=== PATIENT | male | born 1945 | race Caucasian/White ===

== ENCOUNTER → 2018-08-14 | Outpatient (CLI) | payer MEDICARE ==
[~2018-08-14] MED LIST: BENICAR HCT 201 EACH PO; BENICAR HCT 401 EAC1 PO; BENICAR20 MG PO; BENTYL10 MG PO; LEVOTHYROXINE50 MCG PO; LIPITOR20 MG PO; MAG-G500 MG; NEXIUM40 MG PO; NORVASC5 MG PO; PAROXETINE HCL20 MG PO; PLAVIX75 MG PO; SINCALIDE 3 MCG/VIAL INJ ONE; Z ARMOUR THYROID PO; Z.0.LASIX40 MG PO; Z.0.LEVAQUIN500 MG PO; ZOCOR20 MG PO; [UNRECOGNIZED DRUG - OTHER] PO
--- NOTE | 2018-08-14 14:32 | Diagnostic Imaging Report ---
Abdominal ultrasound dated 08/14/2018 at 8:12 AM. History: Right upper quadrant pain Comparison: <None available>. Discussion: Transverse and longitudinal images of the abdomen were obtained demonstrating a liver measuring 13.8 cm in length. There is increased echogenicity of the liver. The portal vein is patent with hepatopetal flow and is within normal limits measuring 12 mm in diameter. The biliary tree is within normal limits with the common bile duct measuring 3 mm in diameter. The gallbladder is normal without evidence of stones, wall thickening, or pericholecystic fluid. The sonographic Kramer's sign was negative. The kidneys are normal in size and echogenicity bilaterally without evidence of hydronephrosis, stones, or mass. The right kidney measures 9.8 x 5.2 x 4.8 cm and the left kidney measures 9.1 x 5.3 x 5.3 cm. There are 2 cysts in the left kidney. Upper pole cyst measures 2.1 x 2.0 x 1.9 cm. Left lower pole cyst measures 2.7 x 2.1 x 2.6 cm. The spleen is normal in size and appearance measuring 9.7 x 5.7 x 5.4 cm. The pancreatic <head and body> are visualized and are normal in appearance. The abdominal aorta is within normal limits with a maximal measurement of 2.1 cm. The IVC is patent. There is no evidence of free fluid. IMPRESSION: 1. Bilateral renal cysts. 2. Increased echogenicity of the liver. Signed by: Dr. Masoud Dhaliwal DO on 08/14/2018 1:45 PM
--- NOTE | 2018-08-14 19:42 | Diagnostic Imaging Report ---
Hepatobiliary Scan with Gallbladder Ejection Fraction Clinical information: Abdominal pain; GERD Report: Following intravenous administration of 7 millicuries of Tc-99m mebrofenin, dynamic images of the abdomen in the anterior projection were obtained through 30 minutes. Sincalide (CCK analog) 1.7 micrograms was administered intravenously over 30 minutes with additional imaging for determination of gallbladder ejection fraction. Perfusion to the liver is normal. Extraction of tracer from the blood pool by the liver parenchyma is normal. Tracer is seen promptly within the biliary tract. The gallbladder begins to fill by 6 minutes post-injection of tracer. Tracer is seen in the small bowel by 5 minutes. The gallbladder ejection fraction with administration of sincalide is 92% (normal greater than 40%). Impression: 1. Filling of the gallbladder excludes the diagnosis of acute cystic duct obstruction/acute cholecystitis. 2. Normal gallbladder ejection fraction of 92% does not support the clinical diagnosis of chronic cholecystitis/gallbladder dyskinesia. Signed by: Dr. Vianca Robison M.D. on 08/14/2018 7:38 PM
== END ==
LOC: US 07:33
PROVIDERS: ATTEND Internal Medicine Gastroenterology
DX: K21.0 Gastro-esophageal reflux disease with esophagitis (principal); R10.11 Right upper quadrant pain; R11.0 Nausea
CPT/HCPCS: 76700; 78227; A9537; J2805

== ENCOUNTER → 2019-03-11 | Outpatient (CLI) | payer MEDICARE, OTHER ==
[~2019-03-11] MED LIST changes: -SINCALIDE 3 MCG/VIAL INJ ONE
== END ==
LOC: CARD 14:07
PROVIDERS: ATTEND Family Medicine
DX: R09.89 Other specified symptoms and signs involving the circulatory and respiratory systems (principal); M79.605 Pain in left leg; M79.604 Pain in right leg
CPT/HCPCS: 93925

== ENCOUNTER → 2021-05-21 | Outpatient (CLI) | payer MEDICARE, OTHER | LOC: DX 13:01 | PROVIDERS: ATTEND Family Medicine | DX: M85.88 Other specified disorders of bone density and structure, other site (principal) | CPT/HCPCS: 77080 ==